=== PATIENT | female | born 1935 | race Caucasian/White ===

== ENCOUNTER → 2017-01-09 | Outpatient (CLI) | payer OTHER, MEDICARE ==
[~2017-01-09] MED LIST: NEURONTIN 300300 M1 PO; PREDNISONE 1 MG1 M1 PO; PREDNISONE 5 MG5 M1 PO; TRAMADOL 50 MG50 MG PO
== END ==
LOC: RAD 11:19
DX: Z12.31 Encounter for screening mammogram for malignant neoplasm of breast (principal)

== ENCOUNTER → 2018-01-27 | Outpatient (CLI) | payer OTHER, MEDICARE | LOC: RAD 11:38 | DX: Z12.31 Encounter for screening mammogram for malignant neoplasm of breast (principal); M81.0 Age-related osteoporosis without current pathological fracture ==

== ENCOUNTER → 2019-03-18 | Outpatient (CLI) | payer OTHER, MEDICARE | LOC: RAD 15:12 | DX: Z12.31 Encounter for screening mammogram for malignant neoplasm of breast (principal) ==

== ENCOUNTER → 2020-04-20 | Outpatient (CLI) | payer OTHER, MEDICARE | LOC: BC 11:08 | PROVIDERS: ATTEND Family Medicine | DX: Z12.31 Encounter for screening mammogram for malignant neoplasm of breast (principal) ==

== ENCOUNTER → 2021-06-13 | Outpatient (CLI) | payer OTHER, MEDICARE | LOC: RAD 12:52 | PROVIDERS: ATTEND Family Medicine | DX: Z12.31 Encounter for screening mammogram for malignant neoplasm of breast (principal) ==